=== PATIENT | male | born 1960 ===

== ENCOUNTER 2023-11-25 13:27 | Inpatient (IN) | payer OTHER, SELFPAY ==
[2023-11-25 14:00] VITALS: BP 129/71; PULSE 71; RESP 20; TEMP 36.5; O2SAT 96; BMI 26.1
--- NOTE | 2023-11-25 18:50 | PC.ADMIT ---
Kenneth is a 63 yr old male. He arrived to at 2PM, via ambulance, from [facility]. Kenneth [place] the ED [place] bus [place] due to CAH and homicidal ideations. He reported that voices were telling him to kill himself and others. He denied SI but endorsed SI with plan to kill others with an ice pick. Upon arrival to this unit pt is A&Ox4, pleasant & cooperative with admission process. He denies current SI/HI/AVH. I went to the hospital because I know I need help. The voices had been getting worse. Kenneth reports having numerous past psych admissions at different hospitals. He is homeless and officially staying at [facility], a [facility] in [place]. He had been on a bus traveling to see his brother immediately prior to admit. His only current meds are Risperdal & Celexa. Skin check was unremarkable with the exception of calloused areas on the soles of his feet which has the appearance of plantar warts. He uses a wheelchair to get around due to foot pain, reportedly from a left heel fracture (per patient). Kenneth signed a CV with provider & subsequently signed a three day notice, which will be up Monday 11/27. He has been placed on 5 minute safety checks due to wheelchair use (approved by Exec Dwight. Director of Inpatient ). Kenneth was oriented to his room & the unit, he has been visible in the milieu & ate dinner in kitchen.
[2023-11-25 19:58] VITALS: BP 119/69; PULSE 71; RESP 16; TEMP 36.9; O2SAT 98
[2023-11-25] MEDS: risperiDONE 2 MG TABLET PO (22:10)
--- NOTE | 2023-11-26 07:12 | P.CONHOSP_ITS ---
History of Present Illness Data of Consult Service Date: 11/26/23 Requesting physician: Rylan Rodriguez Primary Care Provider: Unknown Physician HPI Reason for consult: medical h&p 63-year-old male who is wheelchair-bound for unknown reason (reports just secondary to pain) without any other known significant past medical history admitted to adult Psychiatry with consult placed hospitalist service for medical H&P. The patient is admitted from [facility] ED and does not appear to be taking any home medications except for citalopram and risperidone. He denies any known history of chronic medical conditions. He does have chronic pain in the feet bilaterally which she attributes to an unhealed heel fracture from years ago. He resides at a homeless nursing home and denies any illicit substance use. He does report smoking about 10 cigarettes on a daily basis and denies alcohol use. While at [facility], EKG showed NSR, rate [address]/T-wave abnormality. Hematology studies unremarkable. No leukocytosis or anemia. Renal function normal, no CKD. Electrolyte levels within normal limits. Hepatic function within normal limits. Urine tox screen positive for cocaine, THC, and oxycodon e. Negative for COVID-19. He has no complaints other than pain in the bilateral feet at this time. He reports that he does not ambulate, uses wheelchair exclusively. Review of Systems Review of Systems: General: No fevers, malaise, unintentional weight loss HEENT: No blurred vision, diplopia. No sore throat, nasal congestion, rhinorrhea, sinus pain, ear pain Cardiovascular: No chest pain, palpitations, or leg edema Respiratory: No shortness of breath, wheezing, cough GI: No abdominal pain, nausea, vomiting, diarrhea, constipation, melena, hematochezia : No dysuria, hematuria, increased urinary frequency, decreased urinary output MSK: No myalgia, back pain. +bilateral foot pain Neuro: No headaches, weakness, paresthesias Skin: No rashes or lesions PMFSH Medical History Plantar wart of both feet Heel fracture Social History Household Members: None Housing: Other Housing Other:: Homeless nursing home Do you presently have visiting nurse or other home services: No Patient Tobacco Use Status: Current everyday Tobacco user Tobacco use type: Cigarette Cigarettes Per Day: 10 Smoked in Last 30 Days: Yes Patient Interested in Nicotine Replacement: Yes Patient Given Instructions on How to Stop Smoking: No Second Hand Smoke Exposure: No Use of substances other than those prescribed or required for medical reasons: Yes Substance Use Type: Crack/Cocaine and Marijuana Substance Use Frequency: Occasionally Last Used Substance: Just Prior to Admission Last Used Substance Other:: Urine Toxicology positive for crack/cocaine, marijuana & oxycodone Currently Displaying Signs/Symptoms of Drug Intoxication Withdrawal: No Any prior treatment program specific to substance use: No Have you been hit, kicked, punched, or otherwise hurt by someone within the past year? If so, by whom?: No Do you feel safe in your current relationship?: No Current Relationship Is there a partner from a previous relationship who is making you feel unsafe now?: No Are you made to feel afraid or neglected: No Advance Directives: No Advance Directives Information Provided: No (Declined) Do you have thoughts of harming others: None Do you have a plan to hurt others: No Plan Recently lost weight without trying: No Nutrition Risks: No Nutritional Risk Meds Allergies Allergy/AdvReac Type Severity Reaction Status Date / Time No Known Allergies Allergy Verified 11/25/23 13:44 Active Medications: Current Medications Acetaminophen (Acetaminophen 325 Mg Tablet) 650 mg PO Q6H PRN PRN Reason: Headache/Pain Mild Scale (1-3) Al Hydroxide/Mg Hydroxide (Magnesium Hydrox/Alum Hydrox 30 Ml Oral.Susp) 30 ml PO Q6H PRN PRN Reason: Heartburn/Nausea Escitalopram Oxalate (Escitalopram Oxalate 5 Mg Tablet) 5 mg PO DAILY [facility] Hydroxyzine HCl (Hydroxyzine Hcl 25 Mg Tablet) 25 mg PO Q6H PRN PRN Reason: Anxiety Magnesium Hydroxide (Milk Of Magnesia 30 Ml Oral.Susp) 30 ml PO DAILY PRN PRN Reason: Constipation Nicotine (Nicotine 21 Mg Patch.Td24) 21 mg TRANSDERMA DAILY PRN PRN Reason: nicotine cravings Nicotine Polacrilex (Nicotine Polacrilex 2 Mg Gum) 4 mg BUCCAL Q2H PRN PRN Reason: Nicotine Cravings Risperidone (Risperidone 2 Mg Tablet) 2 mg PO BEDTIME ROSALIND Last Admin: 11/25/23 22:10 Dose: 2 mg Trazodone HCl (Trazodone Hcl 50 Mg Tablet) 50 mg PO BEDTIME MRX1 PRN PRN Reason: Insomnia Home Medications ?Medication ?Instructions ?Recorded ?Confirmed ?Last Taken ?Type citalopram 10 mg tablet 10 mg PO DAILY 11/25/23 11/25/23 1 Day Ago History ~11/24/23 10 mg risperidone 2 mg tablet 2 mg PO BEDTIME 11/25/23 11/25/23 1 Day Ago History ~11/24/23 2 mg Physical Exam Vital Signs and Narrative: Vital Signs: Last Vital Signs Temp 98.5 F 11/25/23 19:58 Pulse 71 11/25/23 19:58 Resp 16 11/25/23 19:58 BP 119/69 11/25/23 19:58 Pulse Ox 98 11/25/23 19:58 O2 Del Method Room Air 11/25/23 19:58 BMI result Body Mass Index 26.1 Constitutional - Awake and Alert, No apparent distress Eyes - PERRLA, EOMI Cardiovascular - S1S2, RRR, No edema Respiratory - Normal lung expansion, Normal respiratory effort, No respiratory distress, CTA bilaterally Gastrointestinal - NT / ND; +BS; No rebound or guarding - No CVA tenderness Extremities - no calf tenderness bilaterally, no swelling Skin - Warm/Dry. Multiple areas of hypertrophic callous on heels bilaterally with shallow ulcerations in various aspect of the plantar surface of the bilateral feet consistent with planar warts Neurological - Alert & oriented x3, CN II-XII in tact, 4/5 strength BLE , 5/5 strength bue Psychological - Appropriate affect Assessment and Plan (1) Routine medical exam: Status: Acute Plan 63-year-old male who is wheelchair-bound for unknown reason without any other known significant past medical history admitted to adult Psychiatry with consult placed hospitalist service for medical H&P. #Mood disorder -plan per psychiatry #Chronic bilateral heel pain -no acute injury, can continue using wheelchair as he reports he typically does not weight bear -Can trial gabapentin for chronic pain, at discretion of psychiatrist -should see second worker on discharge for hypertrophic callouses and plantar warts (unfortunately we do not have salicylic acid on formulary to treat) #OUD -plan per psychiatry Vitals stable. Labs and EKG reviewed and are reassuring Thank you for allowing me to participate in this consult. Signing off at this time. Please do not hesitate to call for further questions or for any acute medical issues
[2023-11-26] MEDS: Escitalopram Oxalate 5 MG TABLET PO (08:41)
[2023-11-26 09:08] VITALS: BP 119/64; PULSE 71; RESP 16; TEMP 36.7; O2SAT 97
[2023-11-26] MEDS: Acetaminophen 325 MG TABLET 650 MG PO ×2 (14:04→20:47)
--- NOTE | 2023-11-26 19:03 | P.HPPS_ITS ---
HPI Date of Service: 11/26/23 Chief Complaint: Major Depression w/ psychosis; cannabis, cocaine o Sources of Information: patient interviewed, chart reviewed and crisis/core team assessment reviewed HPI Subjective Notes: [place] Warning, Conditional Voluntary and 3 Day Healthcare Proxy: No Guardianship: No Medical Problems Affecting Mental Status: No Narrative: 63 yo male, history of major depression, recurrent with psychotic features, cocaine and cannabis use disorder, admitted in transfer from [facility] for SI/HI. He had reported hearing voices to kill himself and others. Pt is homeless, and was on his way to [facility] to see family. He was re- established on his med regime at [facility] and admits today on a conditional voluntary signing a three day notice on admission. Past Psychiatric History: IP: 2013 [facility]ion Berger-diagnosed with Depression OP: [facility] team he reports Trials: Risperdal, Citalopram Medical Evaluation Reviewed: Yes [facility] Medical History (Updated 11/27/23 @ 18:37 by Reyna Arthur, DERMATOLOGY PROCEDURAL PHYSICIAN) Polysubstance use disorder Severe recurrent major depression w/psychotic features, mood-congruent Plantar wart of both feet Heel fracture Family History: father-alcoholism Substance History: crack, cocaine, cannabis, a few times per week Trauma History: incarceration in [place] left him to have another man's child. Diagnostics Vital Signs (24Hr): Vital Signs - 24 hr 11/25/23 19:58 11/26/23 09:08 Temperature 98.5 F 98.1 F Pulse Rate 71 71 Respiratory Rate 16 16 Blood Pressure 119/69 119/64 Pulse Oximetry 98 97 Oxygen Delivery Method Room Air Room Air BMI result Body Mass Index 26.1 Labs Labs: Medically cleared with [facility] Meds/Allergies Meds Home Medications ?Medication ?Instructions ?Recorded ?Confirmed ?Type citalopram 10 mg tablet 10 mg PO DAILY 11/25/23 11/25/23 History risperidone 2 mg tablet 2 mg PO BEDTIME 11/25/23 11/25/23 History Allergies Allergies Allergy/AdvReac Type Severity Reaction Status Date / Time No Known Allergies Allergy Verified 11/25/23 13:44 Mental Status Exam Mental Status Exam Patient Appearance: Appropriate Patient Orientation: Person, Place, Time and Situation Level of Consciousness: Alert Patient Behavior: Appropriate, Talkative, Cooperative and Good Eye Contact Mood Description: Appropriate Affect Description: Appropriate Patient Cognition Impaired: No Ability to Follow Directions: Good Speech Pattern: Spontaneous Speech Memory Description: Intact Hallucinations: None Delusions: Not Present Thought Process: Intact Thought Content: positive for Intact Judgement: Good Assessment & Plan Assessment & Plan (1) Severe recurrent major depression w/psychotic features, mood-congruent: Status: Acute Code(s): F33.3 - Major depressive disorder, recurrent, severe with psychotic symptoms (2) Polysubstance use disorder: Status: Acute Code(s): F19.90 - Other psychoactive substance use, unspecified, uncomplicated Plan Recurrent major depression with psychosis, crack, cocaine, cannabis use diso rder. Plan: Admit, CV. TDN signed. Pt plans to DC on 11/27. Continue med regime Encourage milieu work to strengthen coping skills Collateral contact as needed Diagnostics as needed. Patient educated on: medication risk/benefits and therapeutic strategies Informed Consent: understands Reason for continued inpatient stay Substantial Risk for: rapid decompensation Statement Statement: I have reviewed the history and physical and performed a pertinent examination on my patient. No changes have occurred unless specified. If the History and Physical was not performed prior to admission, the Hospitalist's service will be consulted for completing the admission physical. Time Spent With Patient Time: Total time managing care of this patient today ____ minutes.
[2023-11-26 19:47] VITALS: BP 119/69; PULSE 72; RESP 14; TEMP 36.8; O2SAT 99
[2023-11-26] MEDS: risperiDONE 2 MG TABLET PO (20:47)
[2023-11-27 08:30] VITALS: BP 114/65; PULSE 70; RESP 18; TEMP 36.6; O2SAT 97
[2023-11-27] MEDS: Escitalopram Oxalate 5 MG TABLET PO (08:53)
--- NOTE | 2023-11-27 12:04 | HO.PSYCHPN ---
Subjective Subjective Date of Service: 11/27/23 Reason For Visit: Major Depression w/ psychosis; cannabis, cocaine o Subjective Notes: Conditional Voluntary and 3 Day Healthcare Proxy: No Guardianship: No Medical Problems Affecting Mental Status: No Interim History: Pt denies SI/HI/AH/VH. No sx of adrian or psychosis. He plans discharge on 11/27. Asks for refills of citalopram, risperdal, tylenol. Plans to go to family in [place], [place] via train. Declines consideration to retract TDN and remain in treatment. Medication Compliance: Yes Side effects from medications: No Attending Groups: Intermittent Review of Systems Acute medical concerns: No Medical Review of Systems: unchanged Review of Systems Review of Systems chronic foot pain Mental Status Exam Mental Status Exam Patient Appearance: Appropriate Patient Orientation: Person, Place, Time and Situation Level of Consciousness: Alert Patient Behavior: Appropriate, Talkative, Cooperative and Good Eye Contact Mood Description: Appropriate Affect Description: Appropriate Patient Cognition Impaired: No Ability to Follow Directions: Good Speech Pattern: Spontaneous Speech Memory Description: Intact Hallucinations: None Delusions: Not Present Thought Process: Intact Thought Content: positive for Intact Judgement: Good Diagnostics Vital Signs (24Hr): Vital Signs - 24 hr 11/26/23 19:47 11/27/23 08:30 Temperature 98.2 F 98 F Pulse Rate 72 70 Respiratory Rate 14 18 Blood Pressure 119/69 114/65 Pulse Oximetry 99 97 Oxygen Delivery Method Room Air Room Air BMI result Body Mass Index 26.1 Medications Medications Current Medications Acetaminophen (Acetaminophen 325 Mg Tablet) 650 mg PO Q6H PRN PRN Reason: Headache/Pain Mild Scale (1-3) Last Admin: 11/26/23 20:47 Dose: 650 mg Al Hydroxide/Mg Hydroxide (Magnesium Hydrox/Alum Hydrox 30 Ml Oral.Susp) 30 ml PO Q6H PRN PRN Reason: Heartburn/Nausea Escitalopram Oxalate (Escitalopram Oxalate 5 Mg Tablet) 5 mg PO DAILY [facility] Last Admin: 11/27/23 08:53 Dose: 5 mg Hydroxyzine HCl (Hydroxyzine Hcl 25 Mg Tablet) 25 mg PO Q6H PRN PRN Reason: Anxiety Magnesium Hydroxide (Milk Of Magnesia 30 Ml Oral.Susp) 30 ml PO DAILY PRN PRN Reason: Constipation Nicotine (Nicotine 21 Mg Patch.Td24) 21 mg TRANSDERMA DAILY PRN PRN Reason: nicotine cravings Nicotine Polacrilex (Nicotine Polacrilex 2 Mg Gum) 4 mg BUCCAL Q2H PRN PRN Reason: Nicotine Cravings Risperidone (Risperidone 2 Mg Tablet) 2 mg PO BEDTIME ROSALIND Last Admin: 11/26/23 20:47 Dose: 2 mg Trazodone HCl (Trazodone Hcl 50 Mg Tablet) 50 mg PO BEDTIME MRX1 PRN PRN Reason: Insomnia Allergies Allergies Allergy/AdvReac Type Severity Reaction Status Date / Time No Known Allergies Allergy Verified 11/25/23 13:44 Assessment & Plan Assessment & Plan (1) Severe recurrent major depression w/psychotic features, mood-congruent: Status: Acute Code(s): F33.3 - Major depressive disorder, recurrent, severe with psychotic symptoms (2) Polysubstance use disorder: Status: Acute Code(s): F19.90 - Other psychoactive substance use, unspecified, uncomplicated Plan 11/26: Discharge 11/27 on a three day notice of intent. Patient educated on: therapeutic strategies Informed Consent: understands Reason for continued inpatient stay Substantial Risk for: rapid decompensation Time Spent With Patient Time: Total time managing care of this patient today ____ minutes.
[2023-11-27 17:48] VITALS: BMI 26.9
[2023-11-27 20:00] VITALS: BP 148/81; PULSE 64; RESP 18; TEMP 36.6; O2SAT 98
[2023-11-27] MEDS: traZODone HCL 50 MG TABLET PO (21:01)
[2023-11-27] MEDS: risperiDONE 2 MG TABLET PO (21:01)
[2023-11-28 08:00] VITALS: BP 128/64; PULSE 74; TEMP 36.8; O2SAT 98
[2023-11-28] MEDS: Escitalopram Oxalate 5 MG TABLET PO (08:58)
[2023-11-28] MEDS: Acetaminophen 325 MG TABLET 650 MG PO (09:03)
--- NOTE | 2023-11-28 10:36 | P.DS_ITS ---
DS: Providers Provider Date of Service: 11/28/23 Date of admission: 11/25/23 13:27 Date of discharge: 11/28/23 Primary care physician: Unknown Physician Admitting clinician: Reyna Arthur Attending physician on admission: Abdifatah Garcia Consults: 11/25/23 13:45 Consult to Hospitalist Routine Comment: Consulting Provider: Hospitalist Reason For Exam: transfer pt Attending physician on discharge: Abdifatah Garcia Discharging clinician: Reyna Arthur DS: Diagnosis Discharge Diagnosis (1) Severe recurrent major depression w/psychotic features, mood-congruent: Status: Acute (2) Polysubstance use disorder: Status: Acute DS: Medications Discharge Medications Home Medications: Previous Rx's ?Medication ?Instructions ?Recorded acetaminophen 325 mg tablet 650 mg (2 x 325 mg) PO Q6H PRN 11/27/23 Headache/Pain Mild Scale (1-3) #90 tabs citalopram 10 mg tablet 10 mg PO DAILY #30 tabs 11/27/23 risperidone 2 mg tablet 2 mg PO BEDTIME #30 tabs 11/27/23 Mental Status Exam Mental Status Exam Patient Appearance: Appropriate Patient Orientation: Person, Place, Time and Situation Level of Consciousness: Alert Patient Behavior: Appropriate, Talkative, Cooperative and Good Eye Contact Mood Description: Appropriate Affect Description: Appropriate Patient Cognition Impaired: No Ability to Follow Directions: Good Speech Pattern: Spontaneous Speech Memory Description: Intact Hallucinations: None Delusions: Not Present Thought Process: Intact Thought Content: positive for Intact Judgement: Good DS: Summary Hospital Course Hospital Course: Admission to adult psychiatry for exacerbation of recurrent major depression, polysubstance use disorder. Pt transferred from [facility] where he reported SI/HI/AH/VH due to not having current medications, citalopram, risperdal. Pt was traveling from [place] to [place] to visit with family when symptoms developed. Medication regime was re-established. Symptoms were managed. Pt signed a three day notice of intent and will continue his travel to [facility] to be with his family Status at Discharge Functional status at discharge: independent ambulation Overall status at discharge: patient is back to baseline Time Spent with Patient Time attestation: Total time managing care of this patient today ____ minutes. Time spent: Less than 30 minutes Discharge Plan Discharge Anticipated Discharge Date/Time: 11/28/23 12:00 Patient Disposition: Xfer Other Discharge Diagnosis: Recurrent major depression with psychosis Polysubstance Use Disorder- cannabis, crack, cocaine Discharge Medications: New acetaminophen 325 mg Tablet 650 mg PO Q6H PRN (Reason: Headache/Pain Mild Scale (1-3)) Qty: 90 0RF Continued citalopram 10 mg tablet 10 mg PO DAILY Qty: 30 0RF risperidone 2 mg tablet 2 mg PO BEDTIME Qty: 30 0RF Discharge Orders: Discharge Order (Routine); Ordered 11/28/23 Ordered By: Reyna Arthur Diet: Advance to usual diet Activity on Discharge: As tolerated Stand Alone Forms: Patient Portal Discharge page, Community Support Print Language: Swedish Care Plan Goals: Mood and Behavioral Stabilization Abstinence from Substance Use Health Concerns: Mood and Behavioral Stabilization Abstinence from Substance Use Plan of Treatment: Take medications as directed Call/Return as needed Assessment: Discharge via three day notice of intent No SI/HI/AH/VH sx of psychosis or adrian Discharge Date/Time: 11/28/23 11:09
== END 2023-11-28 11:09 | disposition other institution (70) | DRG 751 ==
PROVIDERS: Admitting Provider Psychiatry & Neurology Psychiatry; Visit Provider Clinical Nurse Specialist Psychiatric/Mental Health, Adult
DX: F33.3 Major depressive disorder, recurrent, severe with psychotic symptoms (principal); B07.0 Plantar wart; F17.210 Nicotine dependence, cigarettes, uncomplicated; G89.29 Other chronic pain; F19.90 Other psychoactive substance use, unspecified, uncomplicated; M79.672 Pain in left foot; M79.671 Pain in right foot; Z71.6 Tobacco abuse counseling; Z99.3 Dependence on wheelchair; Z59.01 Sheltered homelessness; Z79.899 Other long term (current) drug therapy

== ENCOUNTER → 2023-11-25 13:27 | Outpatient (BNV) | payer OTHER, SELFPAY | PROVIDERS: Admitting Provider Psychiatry & Neurology Psychiatry; Visit Provider Physician Assistant | DX: Z02.2 Encounter for examination for admission to residential institution (principal) | CPT/HCPCS: 99429 ==

== ENCOUNTER → 2023-11-25 13:27 | Outpatient (BNV) | payer OTHER, SELFPAY | PROVIDERS: Admitting Provider Psychiatry & Neurology Psychiatry; Visit Provider Clinical Nurse Specialist Psychiatric/Mental Health, Adult | DX: F33.3 Major depressive disorder, recurrent, severe with psychotic symptoms (principal); F19.90 Other psychoactive substance use, unspecified, uncomplicated | CPT/HCPCS: 99231; 99232; 99238 ==